=== PATIENT | female | born 1935 | race Caucasian/White ===

== ENCOUNTER 2019-11-23 08:22 | Outpatient (CLI) | payer MEDICARE, SELFPAY ==
--- NOTE | 2019-11-23 | USCV_ITS ---
Honey Godfrey Age: 84 Gender: F : 1935 Exam Date: 11/23/2019 08:52 Ordering Phys: Mariano Arnold Technologist: Lory Malone [place] [facility] [place] F/U STENOS[place] Risk Factors: Unknown Previous Vascular Surgery: None Right Brachial BP: / Left Brachial BP: / Right Left Velocity (cm/s) Spectral Plaque Velocity (cm/s) Spectral Plaque Syst/Diast Broadening Syst/Diast Broadening 53.10/ 10.80 Prox CCA 47.20 / 8.90 61.10/ 7.80 Mid CCA 53.80 / 9.40 61.10/ 13.00 Distal CCA 61.70 / 10.40 43.80/ 7.70 Prox ICA 38.20 / 12.50 65.10/ 17.80 Mid ICA 176.30/ 60.40 Hetro 104.20/29.10 Distal ICA 117.30/ 16.40 58.00 ECA 70.50 1.71 ICA/CCA 3.28 Antegrade Vertebral Antegrade 67.50/ 21.40 cm/s 65.60/ 24.00 cm/s Tri Subclavian Tri 83.70 111.0 0 FINDINGS comparison 11/08/18 CONCLUSIONS Right ICA stenosis <50%. Left ICA stenosis 50-69%. Moderate calcified atheromatous plaque left carotid bulb/ICA. PSV stable since 2018 Normal antegrade Doppler flow noted in the right vertebral artery. Normal antegrade Doppler flow noted in the left vertebral artery. Gal Galaviz MD (Electronically Signed) Final Date: 23 Nov 2019 13:39 S
--- NOTE | 2019-11-23 08:39 | ECG_ITS ---
NAME OF STUDY: LEXISCAN SESTAMIBI STRESS TEST INDICATION: Shortness of Breath PROCEDURE: At the baseline, the blood pressure was 137/64 mmHg with a heart rate of 55 bpm. The electrocardiogram showed sinus bradycardia with PACs, normal axis. Poor anterior R wave progression. The Lexiscan was infused over a period of 20 seconds. A total of 0.4 milligrams of Lexiscan was infused. The stress phase was continued for a total of 5 minutes. Heart rate at the end of the stress phase was 68 bpm with a blood pressure 126/48 mmHg. The EKG at the peak infusion revealed sinus rhythm with no significant ST-T wave changes. Sestamibi was injected 20 seconds after the Lexiscan infusion. Blood pressure at the end of the recovery phase was 119/52 mmHg with a heart rate of 68 beats per minute. CONCLUSION: 1. No significant EKG changes with the LexiScan infusion. 2. No LexiScan induced chest pain or cardiac arrhythmia. 3. Normal blood pressure and heart rate response. 4. Sestamibi/sestamibi perfusion scan pending; see separate report. Electronically Signed On 11-23-2019 16:12:53 CDT by Carrie Gallardo M.D. [email or web address]
--- NOTE | 2019-11-23 08:39 | NMCV_ITS ---
NM alexandre perf SPECT r/s* [id number] Honey Godfrey Age: 84 Gender: F : 1935 Exam Date: 11/23/2019 09:20 Ordering Phys: Mariano Arnold Technologist: JEANINE Lee Exam Location: [facility] Indications: CAROTID STENOSIS CHEST PAIN STRESS TEST [facility] IMAGE PROTOCOL Rest/Stress 1 Lexiscan Day Radiopharmaceutical Dose (mCi) Administration Site Administered by Rest: Tc-99m 10.6 IV JEANINE Hernandez Sestamibi Stress:Tc-99m 31.8 IV JEANINE Lee Sestamijoceline Rest: 23-Nov-2019 60 Discovery 630 Stress: 23-Nov-2019 30 Discovery 630 0.4mg Lexiscan. Images obtained in supine and prone position. SPECT RESULTS Technical Quality: Excellent Raw Data Analysis: Normal Image Corrections: Patient motion artifact - motion correction applied to stress images. Summed Stress Score: 0 Summed Rest Score: 6 Summed Difference Score: 0 PERFUSION FINDINGS Myocardial perfusion imaging revealing patchy areas of slightly decreased tracer uptake in the anterior and inferior wall regions with no significant reversibility FUNCTIONAL RESULTS (calculated via Gated SPECT) Stress Image LV EF (%): 81 Stress EDV (mL):54 TID: 1.16 Stress ESV (mL):10 FUNCTIONAL FINDINGS: Segmental wall motion analysis revealing no gross wall motion normalities. IMPRESSIONS 1. Myocardial perfusion may revealing patchy areas of persistent decreased uptake in the anterior wall and inferior wall regions, most likely represent attrition artifact. 2. Normal LV ejection fraction of 81%. 3. LV wall motion analysis revealing no gross wall motion normalities. 4. Normal LV volume. 5. Slightly elevated transient ischemic dilatation ratio (1.16) may suggest endocardial ischemia. However the positive predictive value this finding is low in the absence of any other abnormal objective findings. Clinical correlation is recommended. Dr Nir Barrios MD FACC (Electronically Signed) Final Date: 23 Nov 2019 19:02 S
[2019-11-23 08:47] VITALS: BMI 25.7
[2019-11-23] MEDS: regadenoson 0.4 Mg/5 ml Syringe IVP (10:31)
[2019-11-23 10:42] VITALS: BP 119/52; PULSE 66
== END 2019-11-23 08:23 | disposition home or self-care (01) ==
PROVIDERS: PCP Family Medicine; Visit Provider Family Medicine
DX: R07.9 Chest pain, unspecified (principal); R06.02 Shortness of breath; I65.23 Occlusion and stenosis of bilateral carotid arteries
CPT/HCPCS: 78452; 93017; 93880; A9500; J2785

== ENCOUNTER 2020-01-10 13:00 | Outpatient (CLI) | payer MEDICARE, SELFPAY ==
--- NOTE | 2020-01-10 13:21 | USCV_ITS ---
Honey Godfrey Age: 84 Gender: F : 1935 Exam Date: 01/10/2020 13:42 Ordering Phys: Nir Barrios MD ([email or web address]) Technologist: Rosa Mcgowan [place] [facility] [place]: ABNORMAL STRESS TEST BP: / HR: 51 Rhythm: Sinus Technical Quality: Suboptimal MEASUREMENTS (Male / Female) Normal Values 2D ECHO LV Diastolic Diameter PLAX 3.7 cm 4.2 - 5.9 / 3.9 - 5.3 cm LV Systolic Diameter PLAX 2.2 cm LV Chamber Size 2.9 cm IVS Diastolic Thickness 1.1 cm 0.6 - 1.0 / 0.6 - 0.9 cm IVS Systolic Thickness 1.2 cm LVPW Diastolic Thickness 1.5 cm 0.6 - 1.0 / 0.6 - 0.9 cm LVPW Systolic Thickness 1.7 cm RV Chamber Size 2.7 cm LVOT Diameter 2.0 cm LV Ejection Fraction 2D Teich 72.1 % LV Ejection Fraction MOD 2C 65.0 % LV Ejection Fraction 2C AL 65.6 % LA Diameter 4.1 cm LA Width 3.6 cm LA Height 4.9 cm RA Width 3.0 cm RA Height 3.5 cm M-MODE LV Diastolic Diameter MM 4.8 cm 4.2 - 5.9 / 3.9 - 5.3 cm LV Systolic Diameter MM 2.8 cm LV Ejection Fraction MM Teich 72.6 % IVS Diastolic Thickness MM 0.6 cm 0.6 - 1.0 / 0.6 - 0.9 cm IVS Systolic Thickness MM 1.0 cm LVPW Diastolic Thickness MM 0.9 cm 0.6 - 1.0 / 0.6 - 0.9 cm LVPW Systolic Thickness MM 1.3 cm Aortic Annulus Diameter 2.3 cm LA Ao Ratio MM 1.7 MV E Point Septal Separation 0.8 cm DOPPLER AV Peak Velocity 140.0 cm/s LVOT Peak Velocity 102.0 cm/s AV Area Cont Eq vti 2.8 cm squared AV Area Cont Eq pk 2.3 cm squared MV Area PHT 3.3 cm squared Mitral E to A Ratio 1.9 MV E' Velocity 6.0 cm/s Mitral E to MV E' Ratio 15.6 Mitral E to LV E' Lateral Ratio 17.3 Mitral E to LV E' Septal Ratio 14.4 TR Peak Velocity 306.0 cm/s TR Peak Gradient 37.4 mmHg TR Mean Velocity 227.6 cm/s TR Mean Gradient 23.5 mmHg TR Velocity Time Integral 126.2 cm TV Peak E Velocity 77.0 cm/s Right Atrial Pressure 3.0 mmHg Pulmonary Artery Systolic Pressu 40.5 mmHg PV Peak Velocity 69.0 cm/s RV Acceleration Time 0.2 s RV Ejection Time 0.4 s RV AcT/ET 0.5 FINDINGS Left Ventricle Normal left ventricular size and systolic function, EF 59 %. Mild left ventricular hypertrophy. Right Ventricle The right ventricle is normal in size and function. Right Atrium The right atrium is normal in size. Left Atrium Mildly increased left atrial size. Mitral Valve Thickened mitral valve. Trace mitral valve regurgitation. Aortic Valve Thickened aortic valve. Tricuspid Valve Trace tricuspid valve regurgitation. Pulmonic Valve Estimated pulmonary artery peak systolic pressure of 41 mmHg Pericardium No pericardial effusion. Aorta Normal aortic annulus size. CONCLUSIONS Normal left ventricular size and systolic function, EF 59 %. Mild left ventricular hypertrophy. Mildly increased left atrial size. Thickened mitral valve. Trace mitral valve regurgitation. Thickened aortic valve. Trace tricuspid valve regurgitation. Estimated pulmonary artery peak systolic pressure of 41 mmHg There is no pericardial effusion. There are no intracardiac masses. No previous study is available for comparison. Dr Nir Barrios MD FAC (Electronically Signed) Final Date: 10 January 2020 18:08 S
== END 2020-01-10 13:01 | disposition home or self-care (01) ==
LOC: RAD 13:06
PROVIDERS: PCP Family Medicine; Visit Provider Internal Medicine Cardiovascular Disease
DX: R94.39 Abnormal result of other cardiovascular function study (principal); I08.0 Rheumatic disorders of both mitral and aortic valves
CPT/HCPCS: 93306

== ENCOUNTER 2022-05-01 12:36 | Emergency (ER) | payer MEDICARE, SELFPAY ==
[2022-05-01 12:54] VITALS: BP 114/71; PULSE 98; RESP 15; TEMP 36.3; O2SAT 97; BMI 21.6
--- NOTE | 2022-05-01 13:07 | ED_ITS ---
HPI - General Adult General: Chief complaint: General Medical Stated complaint: constipation Time Seen by Provider: 05/01/22 13:07 Limitations: other (dementia) History of Present Illness: Ms. Godfrey is an 86-year-old lady presenting from urology clinic for concern over constipation and fecal impaction. She was undergoing attempted cystoscopy however due to distortion secondary to this rectal stool ball was unable to complete it. Patient does have a history of mostly liquid stools and a history of constipation. Has been on MiraLAX with no apparent improvement. Does have some discomfort and straining with bowel movements at times. Does have issues with continence. No other specific changes in health, exacerbating, or alleviating factors identified. Relieving factors: none Exacerbating factors: none Review of Systems General: Reports: 10 or more systems reviewed and unremarkable except in HPI and below PFSH ED PFSH: Medical History Abnormal nuclear stress test Bilateral carotid artery stenosis Hyperlipidemia Hypertension Polio Surgical History H/O: hysterectomy Hx of tonsillectomy Family History Other CAD (coronary artery disease) Cancer Family history of premature coronary artery disease Hyperlipidemia Hypertension Stroke Social History Smoking and tobacco status: never smoked Alcohol intake: never Marital status: / Current occupational status: retired History of recent travel: No Physical Exam Const: COMMON NORMALS: alert GENERAL APPEARANCE: cooperative and well developed HENMT: COMMON NORMALS: normocephalic and atraumatic HEAD & SCALP: n ormocephalic and atraumatic Eye: COMMON NORMALS: conjunctivae normal CONJUNCTIVA: Yes conjunctivae normal SCLERA: sclerae normal Neck/C-Spine: COMMON NORMALS: supple GENERAL: Yes trachea midline Resp: COMMON NORMALS: clear to auscultation bilaterally EFFORT & INSPECTION: Yes able to speak in complete sentences AUSCULTATION: clear to auscultation bilaterally Cardio: COMMON NORMALS: regular rate and regular rhythm RATE: regular rate RHYTHM: regular rhythm GI: COMMON NORMALS: Soft to palpation PALPATION: Yes Soft to palpation, Yes Tenderness to palpation present (GI) (mild, lower), No Guarding due to palpation present (GI) and No Rigid due to palpation Extremity: GENERAL: Yes normal exam except as noted and No edema Neuro: COMMON NORMALS: moves all extremities SENSORIUM/ORIENTATION: Yes alert and No Orientation impaired Psych: COMMON NORMALS: mental status grossly normal and Normal thought process present THOUGHT PROCESS: Normal thought process present Course Vital Signs: Vital signs: Vital Signs Temperature 97.4 F L 05/01/22 12:54 Pulse Rate 77 05/01/22 20:00 Respiratory Rate 18 05/01/22 13:36 Blood Pressure 131/58 05/01/22 20:00 Pulse Oximetry 97 05/01/22 20:00 Oxygen Delivery Me thod 05/01/22 12:54 [facility] - General Adult Medical Decision Making 86-year-old lady presenting Upon clarification with urology they did perform cystoscopy which may explain air in bladder. Unable to definitely visualize entire bladder secondary to extrinsic mass distorting posterior of bladder. Part of the evaluation was examining for fistula which was unable to be completed. Additionally patient reported more discomfort than typical with procedure. Rectal exam performed by urologist and stool ball palpated at which point patient was referred for further evaluation in the emergency department. Initial exam here notable for satisfactory vitals, no evidence of peritonitis or abdominal distention. Patient does have dementia which mildly limits history however no focal neurologic deficits are appreciated. Laboratory studies notable for leukocytosis, normocytic anemia, mild thrombocytosis. Electrolyte panel is essentially unremarkable, renal function is preserved. Given age and other factors CT imaging felt to be appropriate. Results as noted in radiology report however most significant for large presacral fluid collection most likely abscess 7.3 x 5.7 x 8.5 cm. Etiology is mildly unclear, may be previously perforated diverticuli though there is extensive circumferential rectal wall thickening and air suspected within the rectal wall as well. I discussed the results of imaging with Dr. Munson of the radiology service and Dr. Poe of the general surgery service. Patient exceeds our capability at this facility for either percutaneous interventional radiology guided drainage or surgical management and Dr. Poe recommends transfer for further evaluation. The results of ED evaluation were discussed with the patient and her family members including possible disposition options including transfer. Family and patient are reticent to undergo major abdominal surgical procedure including ostomy formation however would like to pursue perhaps interventional radiology drain placement and antibiotic treatment. I discussed the case with hospitalist service nurse practitioner on behalf of Dr. Fuentes [facility] in [place] and the patient was accepted as a transfer. Patient and family agreeable with plan. ED treatment included Zosyn. Upon serial reexamination of the patient no significant deterioration or development of abdominal pain. Satisfactory for transfer. Medical Records I reviewed the patient's medical records. Lab Data I reviewed the patient's lab results. : 05/01/22 13:28 05/01/22 13:28 Radiology Impressions Abdomen/Pelvis CT 05/01/22 13:15 IMPRESSION: 1. Large presacral fluid collection most likely abscess measuring 7.3 x 5.7 x 8.5 cm. May be from a perforated diverticulum or neoplasm. There is extensive circumferential rectal wall thickening with air in the rectal wall which may indicate pneumatosis. There are also a few small foci of air between the bladder and the rectum that I cannot definitely placed within the lumen. 2. Extensive distal sigmoid wall thickening with inflammatory changes and diverticular disease. Underlying neoplasm not excluded. 3. Extensive atherosclerosis within the aorta and mesenteric vessels. 4. There is a small amount of air in the urinary bladder. Recent attempted catheterization has probably been attempted. Notified Rob Chakraborty MD at 05/01/2022 3:02 PM. Laboratory Results WBC 14.3 10^3/uL (4.0-10.0) H 05/01/22 13: RBC 3.73 10^6/uL (4.1-5.3) L 05/01/22 13:28 Hgb 10.6 g/dL (11.5-15.3) L 05/01/22 13: Hct 35.2 % (37.0-47.0) L 05/01/22 13:28 MCV 94.4 fl (81-99) 05/01/22 13: MCH 28.4 pg (28.0-34.0) 05/01/22 13: MCHC 30.1 g/dL (30.0-36.0) 05/01/22 13: RDW 15.9 % (12.1-15.1) H 05/01/22 13:28 Plt Count 473 10^3/cmm (130-400) H 05/01/22 13:28 MPV 9.7 fL (7.4-10.4) 05/01/22 13:28 Neut % (Auto) 87.4 % 05/01/22 13:28 Lymph % (Auto) 6.9 % 05/01/22 13:28 [place] % (Auto) 4.3 % 05/01/22 13:28 Eos % (Auto) 0.1 % 05/01/22 13:28 Baso % (Auto) 0.8 % 05/01/22 13:28 Neut # (Auto) 12.50 10^3/uL (1.8-7.7) H 05/01/22 13:28 Lymph # (Auto) 1.0 10^3/uL (0.8-4.8) 05/01/22 13:28 [place] # (Auto) 0.6 10^3/uL (0.2-0.9) 05/01/22 13:28 Eos # (Auto) 0.0 10^3/uL (0.0-0.8) 05/01/22 13:28 Baso # (Auto) 0.1 10^3/uL (0.0-0.1) 05/01/22 13:28 Nucleated RBC % (auto) 0 % 05/01/22 13: Nucleated RBCs # 0.0 /100WBC 05/01/22 13:28 Sodium 140 mmol/L (136-145) 05/01/22 13:28 Potassium 3.7 mmol/L (3.5-5.1) 05/01/22 13:28 Chloride 103 mmol/L (98-107) 05/01/22 13:28 Carbon Dioxide 23 mmol/L (22-29) 05/01/22 13:28 Anion Gap 17.7 (5-19) 05/01/22 13:28 BUN 14 mg/dL (8-23) 05/01/22 13:28 Creatinine 0.6 mg/dL (0.5-0.9) 05/01/22 13:28 GFR Calculation Not Reportable 05/01/22 13:28 Glucose 105 mg/dL (65-115) 05/01/22 13:28 Calculated Osmolality 291 mOsm/kg (285-295) 05/01/22 13:28 Lactic Acid 1.4 mmol/L (0.5-2.2) 05/01/22 13:28 Calcium 8.9 mg/dL (8.5-10.5) 05/01/22 13:28 Total Bilirubin 0.5 mg/dL (0.15-1.2) 05/01/22 13:28 AST 14 U/L (0-32) 05/01/22 13:28 ALT 8 U/L (0-33) 05/01/22 13:28 Alkaline Phosphatase 98 U/L (35-105) 05/01/22 13:28 Total Protein 6.5 g/dL (6.6-8.7) L 05/01/22 13:28 Albumin 2.2 g/dL (3.5-5.2) L 05/01/22 13:28 Globulin 4.3 g/dL (1.3-4.6) 05/01/22 13:28 Discharge Plan Discharge Patient Disposition: Xfer Short-Term Hosp Clinical Impression: Intra-abdominal abscess, Abnormal finding on imaging, Leukocytosis Condition: Stable Referrals: Mariano Arnold [Primary Care Provider] - Coding Level of Care Code ED Asp Net C Developer for Chg Fwd Exam Comprehensive
--- NOTE | 2022-05-01 13:15 | CT_ITS ---
WS: [id number] CT ABDOMEN AND PELVIS WITH CONTRAST HISTORY: constipation, abdominal pain TECHNIQUE: Imaging performed of the abdomen and pelvis with IV contrast. Single phase imaging of the abdomen. Coronal and sagittal reformats are submitted. All CT scans at [facility] use at [address] one of these dose optimization techniques: automated exposure control; mA and/or kV adjustment per patient size (includes targeted exams where dose is matched to clinical indication); or iterative re construction. IV CONTRAST: Omnipaque 350; 95 mL IV. Oral contrast: No DLP: 369.14 mGy.cm COMPARISON: 12/31/2021 Lower thorax: New very tiny pleural effusions at the lung bases. Heart is normal size. Moderate size hiatal hernia. Liver/biliary system: Normal size liver with a very slightly nodular contour of the surface. No bile duct dilatation. Portal vein is normal. Gallbladder: Normally distended gallbladder. No adjacent pericholecystic fluid. There is a slight hyp eremia of the gallbladder wall but there is no thickening. No adjacent inflammatory stranding. Pancreas: Diffuse atrophy. Spleen: Normal size spleen. No mass or infarct. Adrenal glands: Normal. Right kidney: Normal. Left kidney: Normal. Aorta: Moderate atherosclerosis with no aneurysm. Extensive calcification at the origin of the celiac axis and SMA. Component of stenosis is likely. There is extensive calcified plaque throughout the SM A. Lymphadenopathy: None. Free fluid: None. GI tract/pelvis: Markedly abnormal appearance to the distal sigmoid and rectum. There is a large amou nt of inflammation with wall thickening involving the distal sigmoid. Contiguous with the distal colo n is the presacral fluid collection with wall enhancement. Presacral collection extends to the sacrum and rectum, greatest to the LEFT of midline. Collection measures 7.3 x 5.7 cm and extends over a pacheco gth of 8.5 cm. Secondary inflammation involves loops of small bowel that extend into the pelvis. Ther e is marked rectal wall thickening and there is evidence for pneumatosis. There is air within the rec cortez wall. There is also air within the urinary bladder that was not present on the prior study. If ur ine sample is not been obtained this is highly suspicious for fistula. Abdominal wall: Infraumbilical abdominal wall hernia on the RIGHT contains fat only. Pelvis: See above the GI tract. Bones: Increase in lumbar lordosis. Advanced facet joint arthritis. CT/CT abdomen pelvis w con* [id number] IMPRESSION: 1. Large presacral fluid collection most likely abscess measuring 7.3 x 5.7 x 8.5 cm. May be from a perforated diverticulum or neoplasm. There is extensive c ircumferential rectal wall thickening with air in the rectal wall which may ind icate pneumatosis. There are also a few small foci of air between the bladder a nd the rectum that I cannot definitely placed within the lumen. 2. Extensive distal sigmoid wall thickening with inflammatory changes and dive rticular disease. Underlying neoplasm not excluded. 3. Extensive atherosclerosis within the aorta and mesenteric vessels. 4. There is a small amount of air in the urinary bladder. Recent attempted cat heterization has probably been attempted. Notified Rob Chakraborty MD at 05/01/2022 3:02 PM.
[2022-05-01 13:36] VITALS: BP 122/58; PULSE 84; RESP 18; O2SAT 98
[2022-05-01 13:36] LABS: Basophils # 0.1 10^3/uL (0.0-0.1); Basophils % 0.8 %; Eosinophils % 0.1 %; Hematocrit 35.2 % (37.0-47.0); Hemoglobin 10.6 g/dL (11.5-15.3); Lymphocytes % 6.9 %; Mean Corpuscular HGB Conc 30.1 g/dL (30.0-36.0); Mean Corpuscular Hemoglobin 28.4 pg (28.0-34.0); Mean Corpuscular Volume 94.4 fl (81-99); Mean Platelet Volume 9.7 fL (7.4-10.4); Monocytes # 0.6 10^3/uL (0.2-0.9); Monocytes % 4.3 %; Neutrophils % 87.4 %; Nucleated Red Blood Cells % 0 %; Platelet Count 473 10^3/cmm (130-400); Red Blood Count 3.73 10^6/uL (4.1-5.3); Red Cell Distribution Width 15.9 % (12.1-15.1); White Blood Count 14.3 10^3/uL (4.0-10.0)
[2022-05-01 13:52] LABS: Lactic Sepsis W/Reflex 1.4 mmol/L (0.5-2.2)
[2022-05-01 13:53] LABS: Alanine Aminotransferase 8 U/L (0-33); Albumin Level 2.2 g/dL (3.5-5.2); Alkaline Phosphatase 98 U/L (35-105); Anion Gap 17.7 (5-19); Aspartate Amino Transferase 14 U/L (0-32); Blood Urea Nitrogen 14 mg/dL (8-23); Calcium 8.9 mg/dL (8.5-10.5); Carbon Dioxide 23 mmol/L (22-29); Chloride 103 mmol/L (98-107); Globulin 4.3 g/dL (1.3-4.6); Glucose 105 mg/dL (65-115); Osmolality Calculated 291 mOsm/kg (285-295); Potassium 3.7 mmol/L (3.5-5.1); Sodium 140 mmol/L (136-145); Total Bilirubin 0.5 mg/dL (0.15-1.2); Total Protein 6.5 g/dL (6.6-8.7)
[2022-05-01] MEDS: iohexol 350 mg/mL 100 mL Btl IV (14:20)
[2022-05-01] MEDS: piperacillin-tazobactam 4.5 GM in sodium chloride 0.9% (plus) 50 ML IV (16:15)
[2022-05-01 17:00] VITALS: BP 127/59; PULSE 81; O2SAT 94
[2022-05-01 18:00] VITALS: BP 126/60; PULSE 82; O2SAT 96
--- NOTE | 2022-05-01 18:13 | PC.NURSE ---
while at bedside pt provided with extra blankets per pt request.
[2022-05-01 19:00] VITALS: BP 146/66; PULSE 83; O2SAT 97
--- NOTE | 2022-05-01 19:56 | PC.NURSE ---
report called to timothy richey rn.
[2022-05-01 20:00] VITALS: BP 131/58; PULSE 77; O2SAT 97
== END 2022-05-01 20:50 | disposition short-term general hospital (02) ==
PROVIDERS: Emergency Provider Emergency Medicine; PCP Family Medicine
DX: K65.1 Peritoneal abscess (principal); D72.829 Elevated white blood cell count, unspecified; R93.5 Abnormal findings on diagnostic imaging of other abdominal regions, including retroperitoneum; E78.5 Hyperlipidemia, unspecified; I10 Essential (primary) hypertension
CPT/HCPCS: 36415; 52000; 74177; 80053; 81003; 83605; 85025; 87040; 96374; 99203; 99285; J2543; Q9967